=== PATIENT | female | born 2000 | race Hispanic/Latino ===

== ENCOUNTER 2019-02-04 21:53 | Emergency (ER) | payer OTHER, SELFPAY ==
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
[2019-02-05 02:08] VITALS: TEMP 99.4; O2SAT 100
[2019-02-05 02:10] VITALS: BP 137/77
--- NOTE | 2019-02-05 11:52 | RAD REPORT ---
EXAM DESCRIPTION: CT - C Spine Wo Con - 02/05/2019 2:05 am CLINICAL HISTORY: PAIN COMPARISON: None. TECHNIQUE: CT CERVICAL SPINE WITHOUT IV CONTRAST on 02/04/2019 10:23 PM CDT This exam was performed according to our departmental dose-optimization program, which includes autom ated exposure control, adjustment of the mA and/or kV according to patient size and/or use of iterati ve reconstruction technique. FINDINGS: There is no acute fracture. Alignment is anatomic. Disc spaces are maintained. Vertebral body heights are preserved. Soft tissues are unremarkable. IMPRESSION: No acute fracture or subluxation. Electronically signed by: Gonzales Kaur MD 02/05/2019 1:24 AM CDT Due to temporary technical issues with the PACS/Fluency reporting system, reports are being signed by the in house radiologist as a courtesy to ensure prompt reporting. The interpreting radiologist is f ully responsible for the content of the report.
== END 2019-02-05 01:50 | disposition home or self-care (01) ==
LOC: ER 21:53
DX: S13.4XXA Sprain of ligaments of cervical spine, initial encounter (principal); V49.50XA Passenger injured in collision with unspecified motor vehicles in traffic accident, initial encounter
CPT/HCPCS: 72125; 99284